=== PATIENT | male | born 1965 ===

== ENCOUNTER 2018-11-21 07:28 | Emergency (ER) | payer OTHER ==
[2018-11-21 07:31] VITALS: BMI 32.3
[2018-11-21 07:33] VITALS: O2SAT 99
--- NOTE | 2018-11-21 08:31 | ED PDOC ---
HPI: Back Time Seen by Provider: 11/21/18 07:55 Chief Complaint (Nursing): Back Pain Chief Complaint (Provider): Back Pain History Per: Patient History/Exam Limitations: no limitations Onset/Duration Of Symptoms: Days (3) Current Symptoms Are (Timing): Intermittent Episodes Additional Complaint(s): 53 y/o male presents to the ED complaining of intermittent lower back pain associated with muscle spasm since 3 days ago. Patient states the pain comes and goes especially with movement, bending, walking, and lifting. He reports taking Motrin and Flexeril for the pain with no relief. Patient had similar symptoms in the past several times taking the same medication. Patient denies radiation to legs, weakness, numbness, fevers, or any injuries. PMD: none provided Past Medical History Reviewed: Historical Data, Nursing Documentation, Vital Signs Vital Signs: Last Vital Signs Temp 98 F 11/21/18 07:41 Pulse 75 11/21/18 07:31 Resp 17 11/21/18 07:31 BP 148/103 H 11/21/18 07:31 Pulse Ox 99 11/21/18 07:31 Primary Care Provider: FAMILY PROVIDER,NO - Medical History PMH: Gastritis, HTN, Hypothyroidism, Kidney Stones, Chronic Kidney Disease - Surgical History Surgical History: No Surg Hx - Home Medications Home Medications: Ambulatory Orders Medication Instructions Recorded Cyclobenzaprine [Cyclobenzaprine 10 mg PO TID #15 tab 11/21/18 HCl] Gabapentin [Neurontin] 300 mg PO DAILY 11/21/18 Ibuprofen [Motrin] 600 mg PO PRN PRN 11/21/18 Levothyroxine [Synthroid] 25 mcg PO DAILY 11/21/18 Lisinopril [Zestril] 10 mg PO DAILY 11/21/18 Naproxen 500 mg PO BID #20 tab 11/21/18 - Allergies Allergies/Adverse Reactions: Allergies Allergy/AdvReac Type Severity Reaction Status Date / Time metronidazole Allergy RASH Verified 11/21/18 07:44 Review of Systems ROS Statement: Except As Marked, All Systems Reviewed And Found Negative Constitutional: Negative for: Fever Musculoskeletal: Positive for: Back Pain (lower) Physical Exam - Reviewed Nursing Documentation Reviewed: Yes Vital Signs Reviewed: Yes - Physical Exam Appears: Positive for: Well, Non-toxic, No Acute Distress, Uncomfortable (with movement) Head Exam: Positive for: ATRAUMATIC, NORMAL INSPECTION, NORMOCEPHALIC Skin: Positive for: Normal Color, Warm, Dry Eye Exam: Positive for: EOMI, Normal appearance, PERRL ENT: Positive for: Normal ENT Inspection Neck: Positive for: Normal, Painless ROM, Supple Cardiovascular/Chest: Positive for: Regular Rate, Rhythm. Negative for: Murmur Respiratory: Positive for: Normal Breath Sounds. Negative for: Wheezing Gastrointestinal/Abdominal: Positive for: Normal Exam, Soft. Negative for: Tenderness Back: Positive for: Normal Inspection, Vertebral Tenderness (Lower lumbar area), Muscle Spasm (lower back) Extremity: Positive for: Normal ROM, Other (Straight leg raises bilaterally; more on the right.) Neurological/Psych: Positive for: Awake, Alert, Normal Tone, Oriented (x3). Negative for: Motor/Sensory Deficits - ECG O2 Sat by Pulse Oximetry: 99 - Progress Re-evaluation Time: 12:17 Condition: Re-examined, Improved Medical Decision Making Medical Decision Making: Time:820 Impression: Lower back pain Differential: Muscle spasm and lumbar radiculopathy Plan: -CT Lumbar -Toradol 30mg -Valium 5mg PO 0922: FINDINGS: VERTEBRAE: Mild multilevel mid inferior lumbar spondylosis and limited inferior facet joint degenerative change. No fracture. Normal alignment. DISCS/SPINAL CANAL/NEURAL FORAMINA: L1-2: Minimal disc bulge posteriorly. No significant central canal or neural foraminal stenosis identified. L2-3: Mild posterior disc osteophyte complex combines with limited facet joint changes causing mild central canal stenosis. L3-4: Mild posterior disc osteophyte complex combines with limited facet joint changes causing mild central canal stenosis. L4-5: Mild posterior disc osteophyte complex combines with limited facet joint changes causing mild central canal stenosis. L5-S1: Limited posterior disc bulging is appreciated with facet degenerative changes causing borderline bilateral neural foraminal stenoses but no significant central stenosis. PARASPINAL SOFT TISSUES: Unremarkable. OTHER FINDINGS: None. IMPRESSION: No fracture or spondylolisthesis throughout the lumbar spine with mild multilevel degenerative disc and facet joint arthropathy resulting in mild central canal stenoses at L2-3 through L4-5 inclusively and borderline bilateral neural foraminal stenoses at L5-S1. Scribe Attestation: Documented by Marianna Mccormack, acting as a scribe for Leland Belcher. Provider Scribe Attestation: All medical record entries made by the Scribe were at my direction and personally dictated by me. I have reviewed the chart and agree that the record accurately reflects my personal performance of the history, physical exam, medical decision making, and the department course for this patient. I have also personally directed, reviewed, and agree with the discharge instructions and disposition. Disposition - Clinical Impression Clinical Impression: Back pain - Patient ED Disposition Is Patient to be Admitted: No Doctor Will See Patient In The: Office Counseled Patient/Family Regarding: Studies Performed, Diagnosis, Need For Followup - Disposition Referrals: [facility] [Outside] Disposition: Routine/Home Disposition Time: 12:17 Condition: GOOD Additional Instructions: AMOS MELGAR, thank you for letting us take care of you today. Your provider was Leland Shen MD and you were treated for LOWER BACK PAIN. The emergency medical care you received today was directed at your acute symptoms. If you were prescribed any medication, please fill it and take as directed. It may take several days for your symptoms to resolve. Return to the Emergency Department if your symptoms worsen, do not improve, or if you have any other problems. Please contact your doctor or call one of the physicians/clinics you have been referred to that are listed on the Patient Visit Information form that is included in your discharge packet. Bring any paperwork you were given at discharge with you along with any medications you are taking to your follow up visit. Our treatment cannot replace ongoing medical care by a primary care provider outside of the emergency department. Thank you for allowing the [facility] hospital team to be part of your care today. If you had an X-Ray or CT scan: A Radiologist will review the ED reading if any change in treatment is needed we will contact you. Prescriptions: Cyclobenzaprine [Cyclobenzaprine HCl] 10 mg PO TID #15 tab Naproxen 500 mg PO BID #20 tab Instructions: Low Back Pain (DC)
--- NOTE | 2018-11-21 09:26 | CT ---
Date of service: 11/21/2018 PROCEDURE: CT Lumbar Spine without contrast HISTORY: back pain COMPARISON: None available. TECHNIQUE: Axial computed tomography images were obtained of the lumbar spine without the use of intravenous contrast. Coronal and sagittal reformatted images were created and reviewed. Radiation dose: Total exam DLP = 770.48 mGy-cm. This CT exam was performed using one or more of the following dose reduction techniques: Automated exposure control, adjustment of the mA and/or kV according to patient size, and/or use of iterative reconstruction technique. FINDINGS: VERTEBRAE: Mild multilevel mid inferior lumbar spondylosis and limited inferior facet joint degenerative change. No fracture. Normal alignment. DISCS/SPINAL CANAL/NEURAL FORAMINA: L1-2: Minimal disc bulge posteriorly. No significant central canal or neural foraminal stenosis identified. L2-3: Mild posterior disc osteophyte complex combines with limited facet joint changes causing mild central canal stenosis. L3-4: Mild posterior disc osteophyte complex combines with limited facet joint changes causing mild central canal stenosis. L4-5: Mild posterior disc osteophyte complex combines with limited facet joint changes causing mild central canal stenosis. L5-S1: Limited posterior disc bulging is appreciated with facet degenerative changes causing borderline bilateral neural foraminal stenoses but no significant central stenosis. PARASPINAL SOFT TISSUES: Unremarkable. OTHER FINDINGS: None. IMPRESSION: No fracture or spondylolisthesis throughout the lumbar spine with mild multilevel degenerative disc and facet joint arthropathy resulting in mild central canal stenoses at L2-3 through L4-5 inclusively and borderline bilateral neural foraminal stenoses at L5-S1.
[2018-11-21 12:35] VITALS: BP 120/64; PULSE 69; RESP 18; TEMP 98.6
== END 2018-11-21 13:03 | disposition home or self-care (01) ==
LOC: H.ER 07:28
DX: M54.5 Low back pain (principal); E03.9 Hypothyroidism, unspecified; I12.9 Hypertensive chronic kidney disease with stage 1 through stage 4 chronic kidney disease, or unspecified chronic kidney disease; N18.9 Chronic kidney disease, unspecified; Z79.899 Other long term (current) drug therapy; Z87.442 Personal history of urinary calculi; Z88.1 Allergy status to other antibiotic agents
CPT/HCPCS: 72131; 96372; 99283; J1885